=== PATIENT | female | born 1960 | race Caucasian/White ===

== ENCOUNTER 2019-01-20 05:45 | Inpatient (IN) | payer BC ==
[2019-01-20 06:02] LABS: URINE BLOOD LARGE (NEGATIVE); URINE KETONE 15 mg/dL (NEGATIVE); URINE LEUKOCYTE ESTERASE LARGE (NEGATIVE); URINE NITRITE POSITIVE (NEGATIVE)
[2019-01-20 06:09] LABS: URINE PROTEIN 300 mg/dL (NEGATIVE)
[2019-01-20 06:11] LABS: URINE APPEARANCE CLOUDY; URINE BILIRUBIN LARGE (NEGATIVE); URINE COLOR ORANGE
[2019-01-20 06:12] LABS: URINE UROBILINOGEN >=8.0 E.U./dL (0.20 - 1.00)
[2019-01-20 06:13] LABS: URINE BACTERIA 3+; URINE WBC >50 (0-2/hpf)
--- NOTE | 2019-01-20 06:15 | Emergency Department Record ---
History of Present Illness - General Stated complaint: SUPRAPUBIC PAIN Time Seen by Provider: 01/20/19 05:59 Source: Patient - History of Present Illness Initial comments: The patient states she has had dysuria and frequency with suprapubic pain and vomiting multiple times since 10 pm last evening. She has a history of frequent UTI's since she was a teenager, and has had her urethra dilated. She vomited about 6-8 times with no diarrhea, no fevers, but some left lower back ache. She stats she has never had any kidney stones. She states also that Cipro works best for her urinary infections. MD Complaint: Dysuria - Related Data Previous Rx's Medication Instructions Recorded Ciprofloxacin HCl [Cipro] 500 mg PO Q12HR #20 tablet 01/20/19 Ondansetron [Zofran Odt] 4 mg PO Q8H PRN #10 tab.rapdis 01/20/19 Allergies Allergy/AdvReac Type Severity Reaction Status Date / Time escitalopram oxalate Allergy Severe SWELLING Unverified 11/13/18 15:27 [From Lexapro] OF THE FACE Sulfa (Sulfonamide Allergy Intermediate RASH Unverified 11/13/18 15:27 Antibiotics) Beta-Blockers AdvReac Severe DIZZINESS Unverified 11/13/18 15:27 (Beta-Adrenergic Bloc lorazepam [From Ativan] AdvReac Severe ALTERED Unverified 11/13/18 15:27 MENTAL STATUS Review of Systems Reviewed: No additional complaints except as noted below Constitutional: Reports: As per HPI. Denies: Chills, Fever, Malaise, Night sweats, Weakness, Weight change Eyes: Reports: As per HPI. Denies: Eye discharge, Eye pain, Photophobia, Vision change ENT: Reports: As per HPI. Denies: Congestion, Dental pain, Ear pain, Epistaxis, Hearing loss, Throat pain Respiratory: Reports: As per HPI. Denies: Cough, Dyspnea, Hemoptysis, Stridor, Wheezes Cardiovascular: Reports: As per HPI. Denies: Arrhythmia, Chest pain, Dyspnea on exertion, Edema, Murmurs, Orthopnea, Palpitations, Paroxysmal nocturnal dyspnea, Rheumatic Fever, Syncope Endocrine: Reports: As per HPI. Denies: Fatigue, Heat or cold intolerance, Polydipsia, Polyuria Gastrointestinal: Reports: As per HPI. Denies: Abdominal pain, Constipation, Diarrhea, Hematemesis, Hematochezia, Melena, Nausea, Vomiting Genitourinary: Reports: As per HPI. Denies: Abnormal menses, Discharge, Dyspareunia, Dysuria, Frequency, Hematuria, Incontinence, Retention, Urgency Musculoskeletal: Reports: As per HPI. Denies: Arthralgia, Back pain, Gout, Joint swelling, Myalgia, Neck pain Skin: Reports: As per HPI. Denies: Bruising, Change in color, Change in hair/nails, Lesions, Pruritus, Rash Neurological: Reports: As per HPI. Denies: Abnormal gait, Confusion, Headache, Numbness, Paresthesias, Seizure, Tingling, Tremors, Vertigo, Weakness Psychiatric: Reports: As per HPI. Denies: Anxiety, Auditory hallucinations, Depression, Homicidal thoughts, Suicidal thoughts, Visual hallucinations Hematological/Lymphatic: Reports: As per HPI. Denies: Anemia, Blood Clots, Easy bleeding, Easy bruising, Swollen glands Past Medical History - SOCIAL HISTORY Smoking Status: Never smoker - RESPIRATORY Hx Respiratory Disorders: No - CARDIOVASCULAR Hx Cardio Disorders: Yes Hx Hypertension: Yes Comment:: bigeminy - NEURO Hx Neuro Disorders: No - GI Hx GI Disorders: No - Hx Genitourinary Disorders: Yes Hx Bladder Problem: Yes Hx UTI: Yes - ENDOCRINE Hx Endocrine Disorders: No - MUSCULOSKELETAL Hx Musculoskeletal Disorders: Yes Hx Fibromyalgia: Yes - PSYCH Hx Psych Problems: No - HEMATOLOGY/ONCOLOGY Hx Hematology/Oncology Disorders: No Physical Exam - General General Appearance: Alert, Oriented x3, Cooperative, No acute distress - Head Head exam: Normal inspection - Eye Eye exam: Normal appearance, PERRL, EOMI. negative: Conjunctival injection, Nystagmus, Scleral icterus Pupils: Normal accommodation - ENT ENT exam: Normal exam, Mucous membranes dry, Mucous membranes moist, Normal external ear exam, Normal orophraynx, TM's normal bilaterally Ear exam: Normal external inspection. negative: External canal tenderness Nasal Exam: Normal inspection. negative: Discharge, Sinus tenderness Mouth exam: Normal external inspection, Tongue normal Teeth exam: Normal inspection. negative: Dental caries Throat exam: Normal inspection. negative: Tonsillar erythema, Tonsillar exudate - Neck Neck exam: Normal inspection, Full ROM. negative: Lymphadenopathy, Meningismus, Tenderness - Respiratory Respiratory exam: Normal lung sounds bilaterally. negative: Accessory muscle use, Respiratory distress - Cardiovascular Cardiovascular Exam: Regular rate, Normal rhythm, Normal heart sounds - GI/Abdominal GI/Abdominal exam: Soft, Normal bowel sounds, Other (mild discomfort over suprapubic area.). negative: Tenderness - Rectal Rectal exam: Deferred - exam: Deferred - Extremities Extremities exam: Normal inspection, Full ROM, Normal capillary refill, Other. negative: Calf tenderness, Pedal edema, Tenderness - Back Back exam: Reports: Normal inspection, CVA tenderness (L) (minimal tenderness lower flank near pelvis rim ), Full ROM. Denies: Muscle spasm, Rash noted, Tenderness - Neurological Neurological exam: Alert, CN II-XII intact, Normal gait, Oriented X3, Reflexes normal. negative: Motor sensory deficit - Psychiatric Psychiatric exam: Normal affect, Normal mood - Skin Skin exam: Dry, Intact, Normal color, Warm Course - Reevaluation(s) Reevaluation #1: Discussed results with patient who is in agreement to be admitted. Spoke with Dr. Ngo who agrees to full admission to his service. He will be writing detailed orders for this patient. 01/20/19 07:32 01/20/19 07:41 Medical Decision Making - Lab Data Result diagrams: 01/20/19 06:35 01/20/19 06:35 Disposition Disposition: Admit Clinical Impression: Electrolyte abnormality UTI (urinary tract infection) Qualifiers: Urinary tract infection type: acute cystitis Hematuria presence: with hematuria Qualified Code(s): N30.01 - Acute cystitis with hematuria Vomiting Qualifiers: Vomiting type: unspecified Vomiting Intractability: non-intractable Nausea presence: with nausea Qualified Code(s): R11.2 - Nausea with vomiting, unspecified Disposition: Still a Patient at [facility] Decision to Admit: Admit from ER Decision to Admit Date: 01/20/19 Decision to Admit Time: 07:34 Accepting Physician: Dr. Ngo Time Discussed w/Accepting Physician: 07:34 Condition: (1) Good Instructions: Urinary Tract Infection in Women (ED) Prescriptions: Ciprofloxacin HCl [Cipro] 500 mg PO Q12HR #20 tablet Ondansetron [Zofran Odt] 4 mg PO Q8H PRN #10 tab.rapdis PRN Reason: Nausea/Vomiting Quality - Quality Measures Quality Measures: N/A - Blood Pressure Screening Does Patient Have Any of the Following: No Blood Pressure Classification: Pre-Hypertensive BP Reading Systolic Measurement: 119 Diastolic Measurement: 81 Screening for High Blood Pressure: < Normal BP, F/U Not Required > [[id number]]
[2019-01-20] MEDS ORDERED: CEFTRIAXONE 1GM/50ML BAG 1 GM/50 ML BAG IVPB ONE (06:26)
[2019-01-20] MEDS ORDERED: 0.9 % SODIUM CHLORIDE 1,000 ML BAG IV ONE ×2 (06:26→08:19)
[2019-01-20] MEDS ORDERED: ONDANSETRON 4 MG ODT TABLET SL ONE (06:26)
[2019-01-20] MEDS ORDERED: ONDANSETRON HCL IV 4 MG/2 ML VIAL IVP ONE (06:39)
[2019-01-20 06:51] LABS: ABSOLUTE NEUTROPHIL COUNT 9.66; HEMATOCRIT 37.8 % (35.0-47.0); HEMOGLOBIN 12.3 gm/dl (11.6-16.0); MEAN CELL VOLUME 87.1 fl (81-97); MEAN CORPUSCULAR HEMOGLOBIN 28.3 pg (27-33); MEAN CORPUSCULAR HGB CONC 32.5 g/dl (32-36); MEAN PLATELET VOLUME 10.2 fl (7.4-10.4); PLATELET COUNT 221 K/uL (130-400); RED BLOOD COUNT 4.34 M/uL (3.80-5.40); RED CELL DISTRIBUTION WIDTH 12.7 % (11.5-14.5); WHITE BLOOD COUNT W/O DIFF 11.7 K/uL (4.2-12.2)
[2019-01-20 07:03] LABS: BLOOD UREA NITROGEN 17 mg/dL (6-20); CREATININE 0.7 mg/dL (0.5-0.9); EST GLOMERULAR FILTRATION RATE > 60 mL/min
[2019-01-20 07:06] LABS: GLUCOSE,RANDOM 113 mg/dL (74-109)
[2019-01-20] MEDS ORDERED: MENTHOL TP PRN (08:19)
[2019-01-20] MEDS ORDERED: TRAMADOL HCL 50 MG TABLET PO PRN (08:19)
[2019-01-20] MEDS ORDERED: ONDANSETRON HCL IV 4 MG/2 ML VIAL IVP PRN (08:22)
[2019-01-20] MEDS ORDERED: METOCLOPRAMIDE HCL 10 MG/2 ML VIAL IVP PRN (08:22)
[2019-01-20] MEDS: POTASSIUM CHL 20MEQ IN 1L NS 20 MEQ/1,000 ML BAG IV SCH ×3 (08:33→17:39)
[2019-01-20] MEDS ORDERED: NAPROXEN 250 MG TABLET PO PRN (09:14)
--- NOTE | 2019-01-20 09:36 | History & Physical ---
History of Present Illness - Date of Service Date of Service for History & Physical: 01/20/19 - History of Present Illness Admitting Diagnosis: Electrolyte imbalance: hyponatremia; hypokelemia, hypochloremia, hypocalcemia; hemorrhagic cystitis, nausea and vomiting History of Present Illness: Ms. Fatoumata Villalobos is a 58 y/o female who says that she came in due to a lot of pain. She is not able describe where she had pain and is very confused on examination this morning. The patient's boyfriend states that she has frequent bladder infections and complains of bladder pain. He says that she complained of nausea and lower abdominal pain last night around 9:30-10 pm which resolved. Then at about 3-4 o,clock she began writhing in pain and she had marked blood in the urine with blood clots. She then had two episodes of vomiting but has not vomited since. The patient had a UTI about 3-4 weeks ago with similar symptoms but says that it resolved with over the counter medications. On arrival to ED the patient's labs showed marked derangement in electrolytes with potassium 3.1, sodium 121 and chloride 85 and UA positive for blood, leukocytes, nitrites, ketones and glucose. The patient is admitted to the general medical floor with altered mental status, acute UTI and electrolyte derangement. The patient's boyfriend says that she has chronic pain, fibromyalgia, hypertension, depression and abnormal intermittently heart rhythms. She is on multiple pain medications and on xanax and Seroquel. PCP: Ashanti Parker NP Travel Screening - Travel/Exposure Within Last 30 Days Have you traveled within the last 30 days?: No - Travel Symptoms Symptom Screening: None Review of Systems Constitutional: Reports: As per HPI. Denies: Chills, Fever, Malaise, Night sweats, Weakness, Weight change Eyes: Reports: As per HPI. Denies: Eye discharge, Eye pain, Photophobia, Vision change ENT: Reports: As per HPI. Denies: Congestion, Dental pain, Ear pain, Epistaxis, Hearing loss, Throat pain Respiratory: Reports: As per HPI. Denies: Cough, Dyspnea, Hemoptysis, Stridor, Wheezes Cardiovascular: Reports: As per HPI. Denies: Arrhythmia, Chest pain, Dyspnea on exertion, Edema, Murmurs, Orthopnea, Palpitations, Paroxysmal nocturnal dyspnea, Rheumatic Fever, Syncope Endocrine: Reports: As per HPI. Denies: Fatigue, Heat or cold intolerance, Polydipsia, Polyuria Gastrointestinal: Reports: As per HPI. Denies: Abdominal pain, Constipation, Diarrhea, Hematemesis, Hematochezia, Melena, Nausea, Vomiting Genitourinary: Reports: As per HPI. Denies: Abnormal menses, Discharge, Dyspareunia, Dysuria, Frequency, Hematuria, Incontinence, Retention, Urgency Musculoskeletal: Reports: As per HPI. Denies: Arthralgia, Back pain, Gout, Joint swelling, Myalgia, Neck pain Skin: Reports: As per HPI. Denies: Bruising, Change in color, Change in hair/nails, Lesions, Pruritus, Rash Neurological: Reports: As per HPI. Denies: Abnormal gait, Confusion, Headache, Numbness, Paresthesias, Seizure, Tingling, Tremors, Vertigo, Weakness Psychiatric: Reports: As per HPI. Denies: Anxiety, Auditory hallucinations, Depression, Homicidal thoughts, Suicidal thoughts, Visual hallucinations Hematological/Lymphatic: Reports: As per HPI. Denies: Anemia, Blood Clots, Easy bleeding, Easy bruising, Swollen glands Past Medical History - SOCIAL HISTORY Smoking Status: Never smoker - RESPIRATORY Hx Respiratory Disorders: No - CARDIOVASCULAR Hx Cardio Disorders: Yes Hx Hypertension: Yes Comment:: bigeminy - NEURO Hx Neuro Disorders: No - GI Hx GI Disorders: No - Hx Genitourinary Disorders: Yes Hx Bladder Problem: Yes Hx UTI: Yes - ENDOCRINE Hx Endocrine Disorders: No - MUSCULOSKELETAL Hx Musculoskeletal Disorders: Yes Hx Fibromyalgia: Yes - PSYCH Hx Psych Problems: No - HEMATOLOGY/ONCOLOGY Hx Hematology/Oncology Disorders: No Family Medical History Any Significant Family History?: Yes Hx Stroke: Mother H&P Meds/Allergies - Allergies Allergies: Allergies Allergy/AdvReac Type Severity Reaction Status Date / Time escitalopram oxalate Allergy Severe SWELLING Unverified 11/13/18 15:27 [From Lexapro] OF THE FACE Sulfa (Sulfonamide Allergy Intermediate RASH Unverified 11/13/18 15:27 Antibiotics) Beta-Blockers AdvReac Severe DIZZINESS Unverified 11/13/18 15:27 (Beta-Adrenergic Bloc lorazepam [From Ativan] AdvReac Severe ALTERED Unverified 11/13/18 15:27 MENTAL STATUS - Home Medications Home Medications Medication Instructions Recorded Confirmed Last Taken Phenazopyridine HCl [Azo Urinary 99.5 mg PO MONTHLY PRN 01/20/19 01/20/19 Unknown Pain Relief] Previous Rx's Medication Instructions Recorded Ciprofloxacin HCl [Cipro] 500 mg PO Q12HR #20 tablet 01/20/19 Ondansetron [Zofran Odt] 4 mg PO Q8H PRN #10 tab.rapdis 01/20/19 - Active Medications Active Medications: Current Medications Enoxaparin Sodium (Lovenox) 40 mg SQ DAILY [facility] Ergocalciferol (Vitamin D2) 50,000 unit PO WEEKLY [facility] Gabapentin (Neurontin) 300 mg PO TID [facility] Potassium Chloride/Sodium Chloride ( Potassium Chl 20meq/) 20 meq in 1,000 mls @ 125 mls/hr IV Q8H [facility] Last Admin: 01/20/19 08:33 Dose: 125 mls/hr Documented by: Lidocaine (Lidoderm) 1 each TOP DAILY [facility] Lisinopril (Zestril) 5 mg PO DAILY [facility] Metoclopramide HCl (Reglan) 5 mg IVP Q6H PRN PRN Reason: NAUSEA Last Admin: 01/20/19 08:30 Dose: 5 mg Documented by: Multivitamins/Minerals (Centrum) 1 tab PO DAILY [facility] Naproxen (Naprosyn) 500 mg PO BID PRN PRN Reason: PAIN - MILD (1-4) Non-Formulary Medication (Menthol [Icy Hot]) 118 ml TP ASDIR PRN PRN Reason: Pain - General Non-Formulary Medication (Estrogen,Samantha/Me-Testosterone [Estrogen-Methyltestos H.S. Tab]) 1 each PO DAILY [facility] Ondansetron HCl (Zofran) 4 mg IVP Q4H PRN PRN Reason: NAUSEA Pantoprazole Sodium (Protonix) 40 mg PO DAILYAC [facility] Sertraline HCl (Zoloft) 37.5 mg PO DAILY [facility] Tramadol HCl (Ultram) 50 mg PO DAILY PRN PRN Reason: Pain - General Zolpidem Tartrate (Ambien) 10 mg PO QHS [facility] Physical Exam - Vital Signs Vital Signs: Vital Signs - Last 24 Hrs Temp Pulse Pulse Resp BP BP BP 01/20/19 09:00 116 H 20 01/20/19 08:19 98.2 F 91 H 20 147/81 01/20/19 06:07 97.9 F 92 H 16 119/81 01/20/19 06:06 97.9 F 92 H 18 119/81 Pulse Ox 01/20/19 09:00 01/20/19 08:19 92 L 01/20/19 06:07 98 01/20/19 06:06 98 - General General Appearance: Alert, Oriented x3, Cooperative, No acute distress - Head Head exam: Normal inspection - Eye Eye exam: Normal appearance, PERRL, EOMI. negative: Conjunctival injection, Nystagmus, Scleral icterus Pupils: Normal accommodation - ENT ENT exam: Normal exam, Mucous membranes dry, Mucous membranes moist, Normal external ear exam, Normal orophraynx, TM's normal bilaterally Ear exam: Normal external inspection. negative: External canal tenderness Nasal Exam: Normal inspection. negative: Discharge, Sinus tenderness Mouth exam: Normal external inspection, Tongue normal Teeth exam: Normal inspection. negative: Dental caries Throat exam: Normal inspection. negative: Tonsillar erythema, Tonsillar exudate - Neck Neck exam: Normal inspection, Full ROM. negative: Lymphadenopathy, Meningismus, Tenderness - Respiratory Respiratory exam: Normal lung sounds bilaterally. negative: Accessory muscle use, Respiratory distress - Cardiovascular Cardiovascular Exam: Regular rate, Normal rhythm, Normal heart sounds Peripheral Pulses: 3+: Radial (R), Radial (L), Dorsalis Pedis (R), Dorsalis Pedis (L) - GI/Abdominal GI/Abdominal exam: Soft, Normal bowel sounds, Other (mild discomfort over suprapubic area.). negative: Tenderness - Rectal Rectal exam: Deferred - exam: Deferred - Extremities Extremities exam: Normal inspection, Full ROM, Normal capillary refill, Other. negative: Calf tenderness, Pedal edema, Tenderness - Back Back exam: Reports: Normal inspection, Full ROM. Denies: CVA tenderness (R), CVA tenderness (L), Muscle spasm, Rash noted, Tenderness - Neurological Neurological exam: Altered, CN II-XII intact. negative: Motor sensory deficit, Oriented X3 - Psychiatric Psychiatric exam: Agitated, Flat affect - Skin Skin exam: Dry, Intact, Normal color, Warm Results - Labs Result Diagrams: 01/20/19 06:35 01/20/19 06:35 Labs Last 24 Hours: Laboratory Results - last 24 hr 01/20/19 01/20/19 01/20/19 05:50 06:35 06:35 WBC 11.7 RBC 4.34 Hgb 12.3 Hct 37.8 MCV 87.1 MCH 28.3 MCHC 32.5 RDW 12.7 Plt Count 221 MPV 10.2 Neutrophils % 84.0 H Eosinophils % Not Reportable Basophils % Not Reportable Absolute Neutrophils 9.66 Lymphocytes 9.0 L Monocytes 5.0 Basophils 1.0 RBC Morphology Normal Eosinophil Count 1.0 Sodium 121 L Potassium 3.1 L Chloride 85 L Carbon Dioxide 22.0 Anion Gap 14.0 BUN 17 Creatinine 0.7 Estimated GFR > 60 Random Glucose 113 H Calcium 8.2 L Urine Color Casey H Urine Appearance Cloudy Urine pH 6.5 Ur Specific [place] 1.025 Urine Protein 300 mg/dl H Urine Glucose (UA) 250 mg/dl H Urine Ketones 15 mg/dl H Urine Blood Large H Urine Nitrite Positive H Urine Bilirubin Large H Urine Urobilinogen >=8.0 Ur Leukocyte Esterase Large H Urine RBC Too numerous to cnt Urine WBC >50 Ur Epithelial Cells 3 - 6 Urine Bacteria 3+ VTE H&P Assessment - Risk for VTE Risk for VTE: Yes Risk Level: Moderate Risk Assessment Date: 01/20/19 Risk Assessment Time: 11:04 VTE Orders Placed or Will Be Placed: Yes Plan - Inpatient Certification Inpatient Certification: Admit to inpatient care: Based on my medical assessment, after consideration of patient's risk factors (age, co-morbidities and patient presenting symptoms and acuity), I expect that this patient will remain in the hospital greater than or equal to two midnights and that the services needed warrant inpatient care because: Patient Risk Factors: UTI, Altered mental status, Estimated length of stay: 2 days The patient may reasonably be expected to be discharged or transferred to a hospital within 96 hours after admission to [facility]. I certify that my determination is in accordance with my understanding of Medicare requirements for reasonable and necessary inpatient services. 01/20/19 09:31 - Detailed Diagnosis and Plan (1) UTI (urinary tract infection) Current Visit: Yes Status: Acute Qualifiers: Urinary tract infection type: acute cystitis Hematuria presence: with hematuria Qualified Code(s): N30.01 - Acute cystitis with hematuria Base Code: N39.0 - URINARY TRACT INFECTION, SITE NOT SPECIFIED Comment: 01/20/19: - Acute UTI w/ UA: ketonuria, glucosuria, hematuria, leukocytes and nitrite positive. - UCX pending. - Start Rocephin 1gm Q24H - IVF: 0.9% Nacl @ 125mL/hr continuous, cardiac monitoring. (2) Change in mental status Current Visit: Yes Status: Acute Base Code: R41.82 - ALTERED MENTAL STATUS, UNSPECIFIED Comment: 01/20/19: - Patient not oriented to time or place and is unable to answer questions completeley. - Likely multifactorial in nature due to hyponatremia, medications and infection. - Hold Seroquel, Tramadol and Xanax. Correct electrolyte imbalances. Reassess mental status on follow up rounds. (3) Electrolyte abnormality Current Visit: Yes Status: Acute Base Code: E87.8 - OTH DISORDERS OF ELECTROLYTE AND FLUID BALANCE, NEC Comment: 01/20/19: - Na 121, K 3.1, Cl 85. Hypochloremic hyponatremia 2/2 to vomiting. - Repelete electrolytes as ordered. - Check BMP Q12h hours. (4) Nausea and vomiting Current Visit: Yes Status: Acute Base Code: R11.2 - NAUSEA WITH VOMITING, UNSPECIFIED Comment: 01/20/19: - Persistent nausea and vomiting. - Continuous IVF until resolution and can tolerate liquid diet. - Zofran 4mg Q4H PRN , Reglan 5mg Q6h PRN, Protonix 40mg IV QD. (5) Dehydration with hyponatremia Current Visit: Yes Status: Acute Base Code: E87.1 - HYPO-OSMOLALITY AND HYPONATREMIA Comment: 01/20/19: - 2/2 to vomiting. Na 121. -Titrate IVF: 0.9% Nacl @ 125mL/hr correction to increase Na by 8-12 meq over the next 24 hours. 231 meq required to achieve desired serum sodium of 128. - Chck BMP in the morning. (6) Tachycardia with heart rate 100-120 beats per minute Current Visit: Yes Status: Acute Base Code: R00.0 - TACHYCARDIA, UNSPECIFIED Comment: 01/20/19: - EKG: Sinus tachycardai with frequent PVCs. - Keep on tele monitor. (7) HTN (hypertension) Current Visit: Yes Status: Acute Base Code: I10 - ESSENTIAL (PRIMARY) HYPERTENSION Comment: 01/20/19: - BP controlled presently. - Resume home dose of Lisinopril 5mg PO if tolerating PO diet. (8) Depression with anxiety Current Visit: Yes Status: Acute Base Code: F41.8 - OTHER SPECIFIED ANXIETY DISORDERS Comment: 01/20/19: - On Xanax and Seroquel at home. Hding both due to mental status changes. Will resume medications once mentation improves. (9) Fibromyalgia Current Visit: Yes Status: Acute Base Code: M79.7 - FIBROMYALGIA Comment: 01/20/19: - Resume Gabapentin 300mg TID, Lidocaine patch Q24H Naprosyn 500mg BId PRN. Will hold Tramadol due to alteration in mentation. (10) DVT prophylaxis Current Visit: Yes Status: Acute Base Code: Z29.9 - ENCOUNTER FOR PROPHYLACTIC MEASURES, UNSPECIFIED Comment: 01/20/19: - Lovenox 40mg sq daily. (11) Full code status Current Visit: Yes Status: Acute Base Code: Z78.9 - OTHER SPECIFIED HEALTH STATUS Comment: 01/20/19: - Full code at this time. Discussed code status with the patient's daughter Margarita and she confirms codes status for ful resuscitation. Will make note if any updates to code status changes.
[2019-01-20] MEDS ORDERED: TESTOSTERONE PO SCH ×2 (10:00)
[2019-01-20] MEDS ORDERED: CHOLECALCIFEROL 50000 UNIT PO SCH (10:00)
[2019-01-20] MEDS ORDERED: SERTRALINE HCL 50 MG TABLET PO SCH (10:00)
[2019-01-20] MEDS ORDERED: ESTROGEN ESTER PO SCH ×2 (10:00)
[2019-01-20] MEDS ORDERED: [UNRECOGNIZED DRUG - OTHER] PO SCH ×2 (10:00)
[2019-01-20] MEDS ORDERED: ERGOCALCIFEROL (VITAMIN D2) 50,000 UNIT CAPSULE PO SCH (10:00)
[2019-01-20 13:18] LABS: AMPHETAMINE SCREEN URINE NOT DETECTED; BARBITURATE SCREEN URINE NOT DETECTED; BENZODIAZEPINE SCREEN URINE NOT DETECTED; COCAINE SCREEN URINE NOT DETECTED; METHADONE SCREEN URINE NOT DETECTED; METHAMPHETAMINE SCREEN NOT DETECTED; OPIATE SCREEN URINE NOT DETECTED; OXYCODONE SCREEN URINE NOT DETECTED; PHENCYCLIDINE SCREEN URINE NOT DETECTED; PROPOXYPHENE SCREEN URINE NOT DETECTED; THC SCREEN URINE NOT DETECTED; TRICYCLIC ANTIDEPRESSANT SCRN NOT DETECTED
[2019-01-20] MEDS ORDERED: MAGNESIUM SULFATE 16 MEQ in 0.9 % SODIUM CHLORIDE 100ML 100 ML IV ONE (13:30)
[2019-01-20] MEDS: LIDOCAINE 5% PATCH TOP SCH ×2 (14:19→15:46)
[2019-01-20] MEDS: GABAPENTIN 300 MG CAPSULE PO SCH ×3 (14:22→22:22)
[2019-01-20] MEDS: LISINOPRIL 5 MG TABLET PO SCH (14:22)
[2019-01-20] MEDS: PANTOPRAZOLE SODIUM 40 MG TABLET PO SCH (14:22)
[2019-01-20] MEDS: MULTIVITAMINS/MINERALS TABLET PO SCH (14:23)
[2019-01-20] MEDS: ENOXAPARIN 40 MG/0.4 ML SYR SQ SCH (14:23)
[2019-01-20 19:06] LABS: OSMOLALITY,URINE 67 mOsm/kg (250-1200)
[2019-01-20 20:45] LABS: BLOOD UREA NITROGEN 9 mg/dL (6-20); CREATININE 0.8 mg/dL (0.5-0.9); EST GLOMERULAR FILTRATION RATE > 60 mL/min; GLUCOSE,RANDOM 102 mg/dL (74-109)
[2019-01-20] MEDS ORDERED: ZOLPIDEM TARTRATE 5 MG TABLET PO SCH (22:00)
[2019-01-21] MEDS ORDERED: CALCIUM CARBONATE 500 MG TAB.CHEW PO PRN (04:18)
[2019-01-21 06:36] LABS: ABSOLUTE NEUTROPHIL COUNT 3.44; BASO % 0.2 % (0-6); HEMATOCRIT 37.4 % (35.0-47.0); HEMOGLOBIN 11.8 gm/dl (11.6-16.0); LYMPH % 27.3 % (16-45); MEAN CELL VOLUME 88.6 fl (81-97); MEAN CORPUSCULAR HGB CONC 31.6 g/dl (32-36); MEAN PLATELET VOLUME 10.6 fl (7.4-10.4); MONO % 9.5 % (0-9); PLATELET COUNT 202 K/uL (130-400); RED BLOOD COUNT 4.22 M/uL (3.80-5.40); RED CELL DISTRIBUTION WIDTH 13.6 % (11.5-14.5); WHITE BLOOD COUNT W/O DIFF 5.5 K/uL (4.2-12.2)
[2019-01-21] MEDS: PANTOPRAZOLE SODIUM 40 MG TABLET PO SCH (06:51)
[2019-01-21] MEDS: POTASSIUM CHL 20MEQ IN 1L NS 20 MEQ/1,000 ML BAG IV SCH ×2 (06:51→11:15)
[2019-01-21 06:55] LABS: BLOOD UREA NITROGEN 9 mg/dL (6-20); CREATININE 0.8 mg/dL (0.5-0.9); EST GLOMERULAR FILTRATION RATE > 60 mL/min; GLUCOSE,RANDOM 99 mg/dL (74-109)
[2019-01-21] MEDS ORDERED: CEFTRIAXONE 1GM/50ML BAG 1 GM/50 ML BAG IVPB SCH (10:00)
--- NOTE | 2019-01-21 10:08 | Discharge Summary ---
Providers Discharge Summary Date: 01/21/19 Date of admission: 01/20/19 08:12 Attending physician: NIDIA DAMON Primary care physician: Ashanti Parker N.P. Physical Exam - Vital Signs Vital Signs: Vital Signs - Last 24 Hrs Temp Pulse Resp BP Pulse Ox 01/21/19 08:19 99.6 F 90 121/58 97 01/21/19 05:00 98.0 F 74 18 103/41 97 01/21/19 00:00 97.8 F 75 18 118/52 96 01/20/19 20:00 98.0 F 52 L 20 135/57 97 01/20/19 16:00 98.4 F 108 H 16 159/74 97 01/20/19 12:30 99.3 F 105 H 16 131/75 99 - General General Appearance: Alert, Oriented x3, Cooperative, No acute distress - Head Head exam: Normal inspection - Eye Eye exam: Normal appearance, PERRL, EOMI. negative: Conjunctival injection, Nystagmus, Scleral icterus Pupils: Normal accommodation - ENT ENT exam: Normal exam, Mucous membranes dry, Mucous membranes moist, Normal external ear exam, Normal orophraynx, TM's normal bilaterally Ear exam: Normal external inspection. negative: External canal tenderness Nasal Exam: Normal inspection. negative: Discharge, Sinus tenderness Mouth exam: Normal external inspection, Tongue normal Teeth exam: Normal inspection. negative: Dental caries Throat exam: Normal inspection. negative: Tonsillar erythema, Tonsillar exudate - Neck Neck exam: Normal inspection, Full ROM. negative: Lymphadenopathy, Meningismus, Tenderness - Respiratory Respiratory exam: Normal lung sounds bilaterally. negative: Accessory muscle use, Respiratory distress - Cardiovascular Cardiovascular Exam: Regular rate, Normal rhythm, Normal heart sounds Peripheral Pulses: 3+: Radial (R), Radial (L), Dorsalis Pedis (R), Dorsalis Pedis (L) - GI/Abdominal GI/Abdominal exam: Soft, Normal bowel sounds, Other (mild discomfort over suprapubic area.). negative: Tenderness - Rectal Rectal exam: Deferred - exam: Deferred - Extremities Extremities exam: Normal inspection, Full ROM, Normal capillary refill, Other. negative: Calf tenderness, Pedal edema, Tenderness - Back Back exam: Reports: Normal inspection, Full ROM. Denies: CVA tenderness (R), CVA tenderness (L), Muscle spasm, Rash noted, Tenderness - Neurological Neurological exam: Alert, Altered, CN II-XII intact, Oriented X3. negative: Motor sensory deficit - Psychiatric Psychiatric exam: negative: Agitated, Flat affect - Skin Skin exam: Dry, Intact, Normal color, Warm Hospitalization - Hospitalization Admission Diagnosis: Electrolyte imbalance: hyponatremia; hypokelemia, hypochloremia, hypocalcemia; hemorrhagic cystitis, nausea and vomiting - Problem List/Discharge Diagnosis (1) UTI (urinary tract infection) Current Visit: Yes Status: Acute Discharge Diagnosis: Urinary tract infection type: acute cystitis Hematuria presence: with hematuria Qualified Code(s): N30.01 - Acute cystitis with hematuria Base Code: N39.0 - URINARY TRACT INFECTION, SITE NOT SPECIFIED Comment: 01/21/19: - Acute UTI w/ UA: ketonuria, glucosuria, hematuria, leukocytes and nitrite positive. - UCX pending. - Start Rocephin 1gm Q24H, change to Levaquin 750 mg daily for 1 week. - D/C IVF: 0.9% Nacl @ 125mL/hr continuous, cardiac monitoring. (2) Change in mental status Current Visit: Yes Status: Acute Base Code: R41.82 - ALTERED MENTAL STATUS, UNSPECIFIED Comment: 01/21/19: Resolved - Patient not oriented to time or place and is unable to answer questions completeley. - Likely multifactorial in nature due to hyponatremia, medications and infection. - Hold Seroquel, Tramadol and Xanax. Correct electrolyte imbalances. Reassess mental status on follow up rounds. (3) Electrolyte abnormality Current Visit: Yes Status: Acute Base Code: E87.8 - OTH DISORDERS OF ELECTROLYTE AND FLUID BALANCE, NEC Comment: 01/21/19: - Na 121 --> 144-->145, K 3.1-->3.9-->4.2, Cl 85--> 109-->111. Hypochloremic hyponatremia 2/2 to vomiting. - Check BMP Q12h hours. (4) Nausea and vomiting Current Visit: Yes Status: Acute Base Code: R11.2 - NAUSEA WITH VOMITING, UNSPECIFIED Comment: 01/21/19: Resolved - Persistent nausea and vomiting. - Continuous IVF until resolution and can tolerate liquid diet. - Zofran 4mg Q4H PRN , Reglan 5mg Q6h PRN, Protonix 40mg IV QD. (5) Dehydration with hyponatremia Current Visit: Yes Status: Acute Base Code: E87.1 - HYPO-OSMOLALITY AND HYPONATREMIA Comment: 01/21/19: Resolved - 2/2 to vomiting. Na 121. -Titrate IVF: 0.9% Nacl @ 125mL/hr correction to increase Na by 8-12 meq over the next 24 hours. 231 meq required to achieve desired serum sodium of 128. - Chck BMP in the morning. (6) Tachycardia with heart rate 100-120 beats per minute Current Visit: Yes Status: Acute Base Code: R00.0 - TACHYCARDIA, UNSPECIFIED Comment: 01/21/19: - EKG: Sinus tachycardai with frequent PVCs. - Keep on tele monitor. - Patient says she has seen Director Of Promotions Dr. Holley Syed and she has Bigeminy. (7) HTN (hypertension) Current Visit: Yes Status: Acute Base Code: I10 - ESSENTIAL (PRIMARY) HYPERTENSION Comment: 01/21/19: - BP controlled presently. - Resume home dose of Lisinopril 5mg PO if tolerating PO diet. (8) Depression with anxiety Current Visit: Yes Status: Acute Base Code: F41.8 - OTHER SPECIFIED ANXIETY DISORDERS Comment: 01/21/19: - Resume all home medications at prescribed doses at discharge. - On Xanax and Seroquel at home. Hding both due to mental status changes. Will resume medications once mentation improves. (9) Fibromyalgia Current Visit: Yes Status: Acute Base Code: M79.7 - FIBROMYALGIA Comment: 01/21/19: - Resume Gabapentin 300mg TID, Lidocaine patch Q24H Naprosyn 500mg BId PRN. Will hold Tramadol due to alteration in mentation. (10) DVT prophylaxis Current Visit: Yes Status: Acute Base Code: Z29.9 - ENCOUNTER FOR PROPHYLACTIC MEASURES, UNSPECIFIED Comment: 01/21/19: - Lovenox 40mg sq daily. (11) Full code status Current Visit: Yes Status: Acute Base Code: Z78.9 - OTHER SPECIFIED HEALTH STATUS Comment: 01/21/19: - Full code at this time. Discussed code status with the patient's daughter Margarita and she confirms codes status for ful resuscitation. Will make note if any updates to code status changes. - Hospitalization Course Hospital Course: Ms. Fatoumata Villalobos is a 58 y/o female who says that she came in due to a lot of pain. She is not able describe where she had pain and is very confused on examination this morning. The patient's boyfriend states that she has frequent bladder infections and complains of bladder pain. He says that she complained of nausea and lower abdominal pain last night around 9:30-10 pm which resolved. Then at about 3-4 o,clock she began writhing in pain and she had marked blood in the urine with blood clots. She then had two episodes of vomiting but has not vomited since. The patient had a UTI about 3-4 weeks ago with similar symptoms but says that it resolved with over the counter medications. On arrival to ED the patient's labs showed marked derangement in electrolytes with potassium 3.1, sodium 121 and chloride 85 and UA positive for blood, leukocytes, nitrites, ketones and glucose. The patient is admitted to the general medical floor with altered mental status, acute UTI and electrolyte derangement. The patient's boyfriend says that she has chronic pain, fibromyalgia, hypertension, depression and abnormal intermittently heart rhythms. She is on multiple pain medications and on xanax and Seroquel. 01/21: Compared to evaluation yesterday morning the patient has improved dramatically. Her electrolytes have corrected and her mental status has returned to baseline. She is able to answer questions appropriately and can cooperate meaningfully in her examination. The patient's heart rate remains tachycardic with multiple PVCs noted but no other acute findings. I would recommend Cardiology follow if sustained HR > 120 at post-discharge visit in the office. The patient is stable for discharge on oral antibiotics for the next 1 week. Urine culture is pending and should be followed once preliminary report and sensitivities are noted. PCP: Ashanti Parker NP Procedures: Cardiology Procedures 01/20/19 08:21 Telemetry [[employer]] .Continuous 01/20/19 09:20 EKG NOW Abnormal Labs: Abnormal Lab Results 01/20/19 01/20/19 01/20/19 Range/Units 05:50 06:35 06:35 MCHC (32-36) g/dl MPV (7.4-10.4) fl Neutrophils % 84.0 H (47-80) % Monocytes % (0-9) % Lymphocytes 9.0 L (16-45) % Sodium 121 L (136-145) mmol/L Potassium 3.1 L (3.4-4.5) mmol/L Chloride 85 L (98-107) mmol/L Random Glucose 113 H (74-109) mg/dL Calcium 8.2 L (8.6-10.0) mg/dL Magnesium (1.6-2.6) mg/dL Urine Color [place] H Urine Protein 300 mg/dl H (NEGATIVE) Urine Glucose (UA) 250 mg/dl H (NEGATIVE) Urine Ketones 15 mg/dl H (NEGATIVE) Urine Blood Large H (NEGATIVE) Urine Nitrite Positive H (NEGATIVE) Urine Bilirubin Large H (NEGATIVE) Ur Leukocyte Esterase Large H (NEGATIVE) Urine Osmolality (250-1200) mOsm/kg 01/20/19 01/20/19 01/20/19 Range/Units 06:35 12:55 20:00 MCHC (32-36) g/dl MPV (7.4-10.4) fl Neutrophils % (47-80) % Monocytes % (0-9) % Lymphocytes (16-45) % Sodium (136-145) mmol/L Potassium (3.4-4.5) mmol/L Chloride 109 H (98-107) mmol/L Random Glucose (74-109) mg/dL Calcium (8.6-10.0) mg/dL Magnesium 1.3 L (1.6-2.6) mg/dL Urine Color Urine Protein (NEGATIVE) Urine Glucose (UA) (NEGATIVE) Urine Ketones (NEGATIVE) Urine Blood (NEGATIVE) Urine Nitrite (NEGATIVE) Urine Bilirubin (NEGATIVE) Ur Leukocyte Esterase (NEGATIVE) Urine Osmolality 67 L (250-1200) mOsm/kg 01/21/19 01/21/19 Range/Units 06:14 06:14 MCHC 31.6 L (32-36) g/dl MPV 10.6 H (7.4-10.4) fl Neutrophils % (47-80) % Monocytes % 9.5 H (0-9) % Lymphocytes (16-45) % Sodium (136-145) mmol/L Potassium (3.4-4.5) mmol/L Chloride 111 H (98-107) mmol/L Random Glucose (74-109) mg/dL Calcium (8.6-10.0) mg/dL Magnesium (1.6-2.6) mg/dL Urine Color Urine Protein (NEGATIVE) Urine Glucose (UA) (NEGATIVE) Urine Ketones (NEGATIVE) Urine Blood (NEGATIVE) Urine Nitrite (NEGATIVE) Urine Bilirubin (NEGATIVE) Ur Leukocyte Esterase (NEGATIVE) Urine Osmolality (250-1200) mOsm/kg Condition at Discharge: (1) Good Discharge Medications - Discharge Medications Prescriptions: Ciprofloxacin HCl [Cipro] 500 mg PO Q12HR #20 tablet Levofloxacin [Levaquin] 750 mg PO DAILY 7 Days #7 tab Ondansetron [Zofran Odt] 4 mg PO Q8H PRN #10 tab.rapdis PRN Reason: Nausea/Vomiting Home Medications: Ambulatory Orders Lidocaine Patch [Lidoderm] 1 ea TOP ASDIR PRN 10/07/14 [Last Taken Unknown] Menthol [Icy Hot] 118 ml TP ASDIR PRN 10/07/14 [Last Taken 12/25/14] Naproxen Sodium [Aleve] 220 mg PO ASDIR PRN 10/07/14 [Last Taken 10/09/14] Tramadol HCl 50 mg PO DAILY PRN 10/07/14 [Last Taken 12/25/14] Vitamin B Complex [B Complete] 1 each PO DAILY tab 03/11/15 [Last Taken Unknown] Ciprofloxacin HCl [Cipro] 500 mg PO Q12HR #20 tablet 01/20/19 [Last Taken Unknown] Ondansetron [Zofran Odt] 4 mg PO Q8H PRN #10 tab.rapdis 01/20/19 [Last Taken Unknown] Phenazopyridine HCl [Azo Urinary Pain Relief] 99.5 mg PO MONTHLY PRN 01/20/19 [Last Taken Unknown] Levofloxacin [Levaquin] 750 mg PO DAILY 7 Days #7 tab 01/21/19 [Last Taken Unknown] Discharge Plan - Discharge Instructions Activity at Discharge: Increase Activity as Tolerated Diet at Discharge: Low Fat, Low Cholesterol, Low Salt Diet Instructions: Urinary Tract Infection in Women (ED) Additional Instructions: Take Levaquin 750 mg, 1 tab daily for the next week. Resume all home medications as prescribed by your PCP. Follow up with your PCP within 1 week of discharge. Consult with [facility] if persistent elevations in heart rate > 120. This can be further discussed with your PCP. Quality Measures - Quality Measures Quality Measures: Documentation of Current Medications in Medical Record, [place] saige for High Blood Pressure and F/U Documented - Current Medications Quality Measure: Measure #130: Documentation of Current Medications Documentation of Current Medications: <Current Medications Documented/Reviewed> [[id number]] - Blood Pressure Screening Quality Measure: Screening for High Blood Pressure and Follow-Up Documented Does Patient Have Any of the Following: Active Dx of HTN Blood Pressure Classification: Pre-Hypertensive BP Reading Systolic Measurement: 119 Diastolic Measurement: 81 Screening for High Blood Pressure: Patient Exclusion, Hx of HTN [[id number]] - Elder Abuse Suspicion Index EASI Reference Information: Jessy CALLOWAY, Haile C, Alli D, Tara Bell.Development and validation of a tool to assist physicians identification of elder abuse: The Elder Abuse Suspicion Index (EASI ). Journal of Elder Abuse and Neglect, 2008; 20 (3): 276-300.
[2019-01-21] MEDS: LIDOCAINE 5% PATCH TOP SCH (11:18)
[2019-01-21] MEDS: MULTIVITAMINS/MINERALS TABLET PO SCH (11:18)
[2019-01-21] MEDS: LISINOPRIL 5 MG TABLET PO SCH (11:19)
[2019-01-21] MEDS: GABAPENTIN 300 MG CAPSULE PO SCH (11:19)
[2019-01-21] MEDS: ENOXAPARIN 40 MG/0.4 ML SYR SQ SCH (11:19)
== END 2019-01-21 10:23 | disposition home or self-care (01) | DRG 690 ==
LOC: ER 05:45 → MEDSURG 08:12
PROVIDERS: ADMIT Internal Medicine; ATTEND Internal Medicine
DX: N30.01 Acute cystitis with hematuria (principal); E87.1 Hypo-osmolality and hyponatremia; R41.82 Altered mental status, unspecified; R11.2 Nausea with vomiting, unspecified; E87.8 Other disorders of electrolyte and fluid balance, not elsewhere classified; E87.6 Hypokalemia; E83.51 Hypocalcemia; R00.0 Tachycardia, unspecified; Z66 Do not resuscitate; F41.8 Other specified anxiety disorders; M79.7 Fibromyalgia
CPT/HCPCS: 80048; 80305; 81001; 83735; 83935; 85025; 85027; 93005; 93010; 96361; 96365; 96375; 99223; 99239; 99285; J0696; J1650; J2405; J2765